=== PATIENT | female | born 1935 | race Caucasian/White ===

== ENCOUNTER 2022-03-22 15:11 | Outpatient (REF) | payer MEDICARE, SELFPAY ==
[2022-03-22 21:43] LABS: Rheumatoid Factor <8.6 IU/mL (<12.0)
[2022-03-25 09:45] LABS: Cyclic Citrullinated Peptide <2.5 U/mL (<5.0)
[2022-03-25 14:52] LABS: ANA Interpretation Positive (Negative); ANA Titer Pattern 1:80 Homogeneous
[2022-03-26 15:10] LABS: dsDNA Ab, IgG <12.3 IU/mL (<30.0)
== END 2022-03-22 15:12 | disposition home or self-care (01) ==
LOC: LBN 15:11
PROVIDERS: PCP Nurse Practitioner Family; Visit Provider Student in an Organized Health Care Education/Training Program
DX: J98.4 Other disorders of lung (principal)
CPT/HCPCS: 86200; 86038; 86225; 86431

== ENCOUNTER 2022-03-28 03:16 | Outpatient (CLI) | payer MEDICARE, SELFPAY ==
[2022-03-28] MEDS: Albuterol HFA 18 GM 200 PUFF INH IH (11:20)
[2022-03-28] MEDS: Inhaler, Assist Device 1 EACH MC (11:21)
--- NOTE | 2022-03-29 14:43 | W.PFT ---
Date of service: 03/28/22 Time of Service: 10:05 Pulmonary Function Test Result Requesting Provider [place] Indications: Restrictive lung disease Interpretation Spirometry: There is no airflow limitation. There is no bronchodilator response. Normal MIP, low MEP. Lung Volumes: Mild restrictive lung disease. Diffusion Capacity: Decreased diffusion Airway Pressure: Normal airways resistance. Impression Mild restrictive lung disease with a decreased diffusion. The clinical significant of an isolated low MEP in unclear. Clinical Correlation therefore is recommended.
== END 2022-03-28 03:17 | disposition home or self-care (01) ==
LOC: RT 03:16
PROVIDERS: PCP Nurse Practitioner Family; Visit Provider Student in an Organized Health Care Education/Training Program
DX: J98.4 Other disorders of lung (principal)
CPT/HCPCS: 94060; 94726; 94729

== ENCOUNTER 2022-04-11 03:31 | Outpatient (CLI) | payer MEDICARE, SELFPAY | END 2022-04-11 03:32 | disposition home or self-care (01) | LOC: LBO 03:31 | PROVIDERS: PCP Nurse Practitioner Family; Visit Provider Nurse Practitioner Family | DX: E83.52 Hypercalcemia (principal) | CPT/HCPCS: 36415; 82330 ==

== ENCOUNTER → 2022-04-12 00:22 | Outpatient (CLI) | payer MEDICARE, SELFPAY ==
--- NOTE | 2022-04-12 07:30 | DI.CT_ITS ---
Exam(s) CT CHEST HIGH RESOLUTION EXAM: CT CHEST HIGH RESOLUTION CLINICAL HISTORY: abnl CXR, concern for ILD,restrictive lung disease,j98.4. TECHNIQUE: Multi planar reconstructions were performed. CONTRAST MATERIAL: None COMPARISON: No exams were available for comparison FINDINGS: CHEST: LUNGS: There is COPD findings. There is extensive ground-glass and confluent infiltrate throughout t he entire right lung, not associated with pleural effusion. Also similar but lesser amount of infilt rate in the opposite-left lung which is predominantly in the left upper lobe. Also no pleural effusi on on the left side. No focal findings in trachea and mainstem bronchi. However, there is significa nt dilatation of the lower esophagus with prominent hiatal hernia noted. This measures 7 cm wide by 5 cm AP. MEDIASTINUM: No obvious hilar adenopathy but there does appear to be subcarinal lymph nodes exhibitin g enlargement . visualized thyroid unremarkable.No obvious axillary adenopathy CARDIAC: Cardiomegaly. No pericardial effusion. Caliber thoracic aorta is upper normal. VISUALIZED UPPER ABDOMEN:No adrenal masses. No splenomegaly. OSSEOUS: Compression fracture of midthoracic vertebra approximately 50 percent, age indeterminate.. IMPRESSION: 1. There is extensive ground-glass infiltrate throughout the right lung and also involving part of th e left lung. No pleural effusions. 2. Large hiatal hernia which measures approximately 7 x 5 x 6 cm. 3. Cardiomegaly. No pericardial effusion. RADIATION DOSE DELIVERED: Total DLP DATA REPOSITORY: All CT scans at this facility are submitted to the National Radiology Data Registry (NRDR) Dose Index Registry (DIR) with the [employer] ([employer]). RADIATION OPTIMIZATION: All CT scans at this facility use at least one of these dose optimization te chniques: automated exposure control; mA and/or kV adjustment per patient size (includes targeted exa ms where dose is matched to clinical indication); or iterative reconstruction.
== END ==
PROVIDERS: PCP Nurse Practitioner Family; Visit Provider Student in an Organized Health Care Education/Training Program
DX: J98.4 Other disorders of lung (principal); I51.7 Cardiomegaly; K44.9 Diaphragmatic hernia without obstruction or gangrene
CPT/HCPCS: 71250